=== PATIENT | male | born 1985 | race Caucasian/White ===

== ENCOUNTER 2022-05-21 06:50 | Day surgery (SDC) | payer OTHER ==
[~2022-05-21] VITALS: Ht 180.3 cm; Wt 91.0 kg
[2022-05-21] VITALS (232 sets, daily range): BP systolic 87–145; BP diastolic 41–88
--- NOTE | 2022-05-21 06:50 | NUR ---
PT ARRIVES ALERT AND AMBULATORY IN NO DISTRESS. STATES FATHER DROPPED HIM OFF AND WILL BE HIS CAREGIVER AFTER PROCEDURE. ORIENTED TO ROOM AND POC. VITALS OBTAINED AND HISTORY REVIEWED.
--- NOTE | 2022-05-21 07:30 | NUR ---
REPORT CALLED TO DR RODRIGUEZ REGARDING HX, USE, DEMEANOR AND VS. NEW ORDERS RECEIVED.
[2022-05-21 07:33] LABS: BASO% 1.2 % (0-3); HEMATOCRIT 41.2 % (37.0-47.0); HEMOGLOBIN 13.5 g/dl (12.0-16.0); IMMATURE GRANULOCYTES 0.2 % (0.0-5.0); LYMPH% 34.9 % (15-41); MEAN CELL VOLUME 86.6 fL CALC (80.0-100.0); MEAN CORPUSCULAR HGB 28.4 pG CALC (26.0-32.0); MEAN CORPUSCULAR HGB CONC 32.8 g/dL CAL (32.0-36.0); MONO% 9.3 % (2-13); NEUT# 3.3 thou/uL (2.00-7.15); NEUT% 51.4 % (42-76); RED BLOOD COUNT 4.76 mill/uL (4.20-5.60); RED CELL DISTRI WIDTH 13.3 % (11.5-15.5)
[2022-05-21 08:04] LABS: ALBUMIN 4.4 g/dL (3.2-5.0); ALKALINE PHOSPHATASE 77 u/l (38-126); ANION GAP 14 (6-22 (CALC)); BILIRUBIN, TOTAL 0.4 mg/dL (0.02-1.3); BUN 15 mg/dL (7-17); BUN/CREATININE RATIO 17 (12-20 (CALC)); CARBON DIOXIDE 25 mmol/l (22-30); CHLORIDE 106 mmol/l (95-108); CREATININE 0.9 mg/dL (0.5-1.0); GFR FOR AFR.AMER. > 60 ML/MIN (>=60 (CALC)); GFR OTHER RACES > 60 ML/MIN (>=60 (CALC)); POTASSIUM 3.8 mmol/l (3.5-5.1); SGOT/AST 100 u/l (14-36); SODIUM 141 mmol/l (137-146); TOTAL PROTEIN 7.3 g/dL (6.3-8.2)
--- NOTE | 2022-05-21 09:30 | NUR ---
PT RESTING IN NO DISTRESS WITH EYES CLOSED. TOLERATING IV FLUIDS WELL. UPDATED ON POC. ROUSES EASILY AND RETURNS TO SLEEP EASILY.
--- NOTE | 2022-05-21 11:35 | NUR ---
Induction Note Time out performed at 1135. Patient placed on monitors, Wilmar hugger, bilateral wrist restraints applied for ET tube protection. Versed 5mg given IV push at 1135 Tourniquet applied to RT arm Lidocaine 100mg given at 1147 IV push followed by Rocoronium 10mg at 1148 IV push and held for 90 seconds. Propofol bolus of 180mg given at 1148 IV push. Succinylcholine 80mg given IV push at 1149. Smooth intubation with 7.5 ETT. Positive CO2. Positive Auscultation for air exchange. Patient placed on ventilator for spontaneous ventilation. Placed on Propofol IV drip at 1150. OG inserted. Positive air on auscultation. Positive gastric content. Stomach washed at this time. Naltrexone 50mg given via OG tube with Clonidine 0.1 mg given via OG Tube. OG clamped for 45 minutes. Will monitor patient for symptoms of withdrawal and adjust propfol accordingly.
--- NOTE | 2022-05-21 12:45 | NUR ---
OG open note OG open at this time. Gastric content draining into drainage bag. OG to drain for 45 minutes. Propofol will be titrated down based on patient.
--- NOTE | 2022-05-21 13:30 | NUR ---
OG close note Stomach washed at this time. Naltrexone 50 mg with Clonidine 0.2 mg via OG tube. OG will be clamped for 45 minutes.
[2022-05-21] MEDS ORDERED: NALTREXONE50 MG PO (14:01)
[2022-05-21] MEDS ORDERED: KLONOPIN2 MG PO (14:02)
[2022-05-21] MEDS ORDERED: CLONIDINE0.1 MG PO (14:02)
--- NOTE | 2022-05-21 15:10 | NUR ---
OG close note Stomach washed at this time. Naltrexone 50 mg with Clonidine 0.1 mg via OG tube. OG will be clamped for 45 minutes.
--- NOTE | 2022-05-21 16:40 | NUR ---
OG close note Stomach washed at this time. Naltrexone 12.5 mg with Clonidine 0.2 mg via OG tube. OG will be clamped for 45 minutes.
--- NOTE | 2022-05-21 18:05 | NUR ---
Closing medications given Benadryl 50mg IV push, Decadron 10mg IV push,Magnesium 4 grams IV, Zofran 8mg IV push, Octreotide 100mg sc
--- NOTE | 2022-05-21 18:35 | NUR ---
Extubation note Stomach washed out prior to extubation. Suctioned gastric content. OG removed. Patient extubated. Propofol Discontinued. Wrist restraints removed. Wilmar hugger Removed. See ANR Moderate sedate recovery record for further notes and assessment.
--- NOTE | 2022-05-21 19:10 | NUR ---
PATIENT RECEIVED TO ROOM 281. BEDSIDE REPORT RECEIVED FROM ERNESTINE ALDANA. PATIENT RESTING EYES CLOSED. VSS, PATIENT ON 2L/NC. NO DISTRESS NOTED. BED IN LOW POSITION, LOCKED. ALARM ACTIVATED.
--- NOTE | 2022-05-21 19:10 | NUR ---
transported to in via stretcher in nad, vss, resp even and unlabored. moving about in bed. Bedside report to Charlie Vazquez, Bed in low position and bed alarm active..
--- NOTE | 2022-05-21 21:26 | NUR ---
PATIENT C/O NAUSEA, ZOFRAN 4MG GIVEN IVP.
[2022-05-22 03:53] VITALS: BP 125/79
--- NOTE | 2022-05-22 04:53 | NUR ---
PATIENT C/O LOWER BACK PAIN, TOO SOON TO ADMINSTER TORADOL IV. PATIENT REPOSITIONED AND WARM COMPRESS APPLIED FOR COMFORT. PATIENT REQUESTS SNACK CLUB CRACKERS AND ALETA MERRY GIVEN, TOLERATED WELL. NO FURTHER CONCERNS EXPRESSED AT THIS TIME. BED IN LOW POSITION, ALARM ACTIVE.
[2022-05-22 06:23] LABS: HEMOGLOBIN 12.2 g/dl (14.0-18.0); IMMATURE GRANULOCYTES 0.2 % (0.0-5.0); MEAN CELL VOLUME 86.3 fL CALC (80.0-100.0); MEAN CORPUSCULAR HGB 29.3 pG CALC (26.0-32.0); MEAN CORPUSCULAR HGB CONC 33.9 g/dL CAL (32.0-36.0); MONO% 2.2 % (2-13); NEUT# 4.83 thou/uL (1.82-7.42); NEUT% 83.6 % (42-76); RED BLOOD COUNT 4.17 mill/uL (4.70-6.10)
[2022-05-22 06:43] LABS: ALBUMIN 3.8 g/dL (3.2-5.0); ALKALINE PHOSPHATASE 66 u/l (38-126); ANION GAP 15 (6-22 (CALC)); BUN 15 mg/dL (9-20); BUN/CREATININE RATIO 16 (12-20 (CALC)); CARBON DIOXIDE 21 mmol/l (22-30); CHLORIDE 107 mmol/l (95-108); CREATININE 0.9 mg/dL (0.7-1.3); GFR FOR AFR.AMER. > 60 ML/MIN (>=60 (CALC)); GFR OTHER RACES > 60 ML/MIN (>=60 (CALC)); MAGNESIUM 2.1 mg/dL (1.6-2.3); POTASSIUM 4.3 mmol/l (3.5-5.1); SGOT/AST 76 u/l (17-59); SODIUM 138 mmol/l (137-146); TOTAL PROTEIN 6.6 g/dL (6.3-8.2)
[2022-05-22 06:44] LABS: BILIRUBIN, TOTAL 0.6 mg/dL (0.2-1.3)
[2022-05-22 07:32] VITALS: BP 129/77
--- NOTE | 2022-05-22 07:32 | NUR ---
GOT REPORT FROM BOTTOM P[employer] C[employer] NURSE. PATIENT IS IN BED SLEEPING. NO SXS OF DISTRESS. FALL PRECAUTIONS ARE IN PLACE. CALL LIGHT AND BEDSIDE TABLE ARE WITHIN REACH.
--- NOTE | 2022-05-22 12:00 | NUR ---
PATIENT ON AND OFF OF SLEEPING. NO SXS OF DISTRESS. PATIENT HAS NO COMPLAINTS AT THIS TIME. PATIENT ALREADY HAS WALKED THE HALLS AND AROUND IN HIS ROOM. PATIENT ADVISED TO CALL IF HE NEEDS ANYTHING. PATIENT VERBALIZED UNDERSTANDING.
--- NOTE | 2022-05-22 15:43 | NUR ---
Discharge instructions given. Patient verbalizes understanding of same. Discharged in stable condition via Wheelchair to Home with family. All belongings sent with pt.
== END 2022-05-22 15:43 | disposition home or self-care (01) | DRG 897 ==
LOC: ANR 06:50 → MS2 08:59 → ANR 05-22 10:00
PROVIDERS: ATTEND Anesthesiology Critical Care Medicine
DX: F11.20 Opioid dependence, uncomplicated (principal)
CPT/HCPCS: J2354; J3475